=== PATIENT | male | born 1940 | race Caucasian/White ===

== ENCOUNTER 2017-02-12 08:46 | Emergency (ER) | payer OTHER ==
[~2017-02-12] VITALS: Ht 175.3 cm; Wt 90.4 kg
[2017-02-12 08:56] VITALS: TEMP 36.4; Ht 175.3 cm; Wt 90.4 kg
[2017-02-12] MEDS ORDERED: BNC/40 PO (09:30)
[2017-02-12] MEDS ORDERED: CLOP1TAB15 PO (09:30)
[2017-02-12] MEDS ORDERED: OLME1TAB11 PO (09:30)
[2017-02-12] MEDS ORDERED: PRAV80TA PO (09:30)
[2017-02-12] MEDS ORDERED: AMLO-114 PO (09:30)
[2017-02-12] MEDS ORDERED: HYDR25TA4 PO (09:30)
[2017-02-12] MEDS ORDERED: PANT40TA PO (09:30)
[2017-02-12] MEDS ORDERED: CTP1 PO (09:30)
[2017-02-12] MEDS ORDERED: EZET10TA47 PO (09:30)
[2017-02-12] MEDS ORDERED: RANI150T3 PO (09:30)
[2017-02-12] MEDS ORDERED: ASPIRIN 81 MG CHEW PO STA (09:54)
[2017-02-12 10:17] LABS: BASO % 0.3 %; BASO ABS # 0.02 K/uL (0-0.2); COMPLETE YES; EOS % 1.1 %; HEMATOCRIT 41.6 % (42-52); IG% 0.2 %; LYMPH % 20.9 %; LYMPH ABS # 1.35 K/uL (1.2-3.4); MEAN CELL VOLUME 92.4 fL (80-100); MEAN CORPUSCULAR HEMOGLOBIN 31.6 pg (25-34); MEAN CORPUSCULAR HGB CONC 34.1 g/dl (32-36); MONO % 8.5 %; PLATELET COUNT 192 K/uL (130-400); WHITE BLOOD COUNT 6.45 K/uL (4.8-10.8)
[2017-02-12 10:24] LABS: ALT/SGPT 40 U/L (12-78); BLOOD UREA NITROGEN 21 mg/dl (7-18); BUN/CREATININE RATIO 19.8 (10-20); CALCIUM 9.1 mg/dl (8.5-10.1); CARBON DIOXIDE 27 mmol/L (21-32); CHLORIDE 101 mmol/L (98-107); CREATININE 1.07 mg/dl (0.60-1.40); GLUCOSE 105 mg/dl (70-99); POTASSIUM 4.1 mmol/L (3.5-5.1); SODIUM 136 mmol/L (136-145)
[2017-02-12 10:30] LABS: ALKALINE PHOSPHATASE 35 U/L (45-117); AST/SGOT 23 U/L (15-37); CKMB/CK RATIO 1.2 (0-3.0)
--- NOTE | 2017-02-12 10:48 | DIAGNOSTIC IMAGING REPORT ---
CHEST ONE VIEW PORTABLE HISTORY: Atypical chest pain, HTN COMPARISON: None. FINDINGS: The heart is normal in size. No pleural effusions. No pneumothorax. The right lung is clear. A few linear densities the left lung base favor subsegmental atelectasis or scarring. No focal lung consolidations to suggest pneumonia. No evidence for pulmonary edema. IMPRESSION: No acute process. Mild left basilar subsegmental atelectasis or scarring. Electronically signed by: Kuldip Lima M.D. 02/12/2017 10:46 AM Dictated Date/Time: 02/12/2017 10:45 AM
[2017-02-12 13:39] VITALS: BP 108/69; PULSE 47; O2SAT 95
--- NOTE | 2017-02-12 13:45 | EMERGENCY ROOM VISIT NOTE ---
History Report prepared by Nikolas: Daniel Barcenas Under the Supervision of: Dr. Claudia Pearce M.D. First contact with patient: 09:13 Chief Complaint: HYPERTENSION Stated Complaint: HIGH BLOOD PRESSURE, BURNING SENSATION IN CHEST History of Present Illness The patient is a 77 year old male who presents to the Emergency Room with complaints of intermittent hypertension beginning a few days ago. He states his blood pressure has been very up and down recently. He states that his blood pressure medications have been improving his blood pressure, but only temporarily. The patient states that his blood pressure was elevated last night at 160/95. He is on Amlodipine, Benicar, and Clonidine. He took Clonidine for the first time last night. The patient notes that his blood pressure is typically elevated at night time. He also complains of chest "burning", and heart palpitations. The patient's chest pain occurred 1.5 hours ago and resolved with nitroglycerin. He had no chest pain last night. He has a history of IA and has a cardiac stent in place. The patient denies eating anything abnormal recently. Source of History: patient Onset: A few days ago Symptom Intensity: 160/95 last night Quality: other (hypertension) Timing: intermittent Associated Symptoms: + chest pain ("burning") Note: The patient also complains of heart palpitations. Review of Systems See HPI for pertinent positives & negatives. A total of 10 systems reviewed and were otherwise negative. Past Medical & Surgical Medical Problems: (1) HLD (hyperlipidemia) (2) HTN (hypertension) (3) Myocardial infarction Surgical Problems: (1) H/O heart artery stent Family History No pertinent family history stated. Social History Smoking Status: Never Smoker Marital Status: Housing Status: lives with family Occupation Status: retired Current/Historical Medications Scheduled Amlodipine (Norvasc), 10 MG PO HS Clonidine HCl (Clonidine HCl), 0.1 MG PO HS Clopidogrel (Plavix), 75 MG PO HS Ezetimibe (Zetia), 10 MG PO DAILY Hydrochlorothiazide (Hctz), 25 MG PO QAM Olmesartan Medoxomil (Benicar), 20 MG PO HS Olmesartan Medoxomil (Benicar), 40 MG PO QAM Pantoprazole (Protonix), 20 MG PO DAILY Pravastatin Sodium (Pravachol), 80 MG PO DAILY Ranitidine Hcl (Zantac), 75 MG PO DAILY Allergies Coded Allergies: Acetaminophen (Unverified Allergy, Unknown, ., 02/12/17) Oxycodone (Unverified Allergy, Unknown, ., 02/12/17) Physical Exam Vital Signs Date Time Temp Pulse Resp B/P (MAP) Pulse Ox O2 Delivery O2 Flow Rate FiO2 02/12/17 13:39 47 20 108/69 95 Room Air 02/12/17 13:11 49 02/12/17 11:59 45 93/61 97 Room Air 02/12/17 10:50 42 20 92/54 93 02/12/17 09:12 46 02/12/17 09:06 45 110/64 98 02/12/17 08:56 36.4 49 18 100/64 98 Room Air Physical Exam Vital signs reviewed. Noted to be normotensive. General: Well-appearing male, in no significant distress. HEENT: No scleral icterus, PERRLA, neck supple. Atraumatic. Cardiovascular: Regular rate and rhythm, no extra sounds. Distant heart tones. Pulmonary: Clear to auscultation bilaterally, normal work of breathing. Abdomen: Soft, nontender, nondistended, positive bowel sounds. Musculoskeletal: Atraumatic. Minimal lower extremity edema bilaterally. Neurologic: Patient awake alert and oriented x 3, full strength in all 4 extremities. Cranial nerves 2 through 12 grossly intact. Skin: Warm, dry, no rash Medical Decision & Procedures ER Provider Diagnostic Interpretation: X-ray results as stated below per interpretation by me and the radiologist: CHEST ONE VIEW PORTABLE FINDINGS: The heart is normal in size. No pleural effusions. No pneumothorax. The right lung is clear. A few linear densities the left lung base favor subsegmental atelectasis or scarring. No focal lung consolidations to suggest pneumonia. No evidence for pulmonary edema. IMPRESSION: No acute process. Mild left basilar subsegmental atelectasis or scarring. Electronically signed by: Kuldip Lima M.D. 02/12/2017 10:46 AM Laboratory Results 02/12/17 09:10 Red Blood Count 4.50, Mean Corpuscular Volume 92.4, Mean Corpuscular Hemoglobin 31.6, Mean Corpuscular Hemoglobin Concent 34.1, Mean Platelet Volume 10.0, Neutrophils (%) (Auto) 69.0, Lymphocytes (%) (Auto) 20.9, Monocytes (%) (Auto) 8.5, Eosinophils (%) (Auto) 1.1, Basophils (%) (Auto) 0.3, Neutrophils # (Auto) 4.45, Lymphocytes # (Auto) 1.35, Monocytes # (Auto) 0.55, Eosinophils # (Auto) 0.07, Basophils # (Auto) 0.02 02/12/17 09:10 Test 02/12/17 09:10 02/12/17 11:03 White Blood Count 6.45 K/uL (4.8-10.8) Red Blood Count 4.50 M/uL (4.7-6.1) Hemoglobin 14.2 g/dL (14.0-18.0) Hematocrit 41.6 % (42-52) Mean Corpuscular Volume 92.4 fL (80-100) Mean Corpuscular Hemoglobin 31.6 pg (25-34) Mean Corpuscular Hemoglobin Concent 34.1 g/dl (32-36) Platelet Count 192 K/uL (130-400) Mean Platelet Volume 10.0 fL (7.4-10.4) Neutrophils (%) (Auto) 69.0 % Lymphocytes (%) (Auto) 20.9 % Monocytes (%) (Auto) 8.5 % Eosinophils (%) (Auto) 1.1 % Basophils (%) (Auto) 0.3 % Neutrophils # (Auto) 4.45 K/uL (1.4-6.5) Lymphocytes # (Auto) 1.35 K/uL (1.2-3.4) Monocytes # (Auto) 0.55 K/uL (0.11-0.59) Eosinophils # (Auto) 0.07 K/uL (0-0.5) Basophils # (Auto) 0.02 K/uL (0-0.2) RDW Standard Deviation 45.9 fL (36.4-46.3) RDW Coefficient of Variation 13.5 % (11.5-14.5) Immature Granulocyte % (Auto) 0.2 % Immature Granulocyte # (Auto) 0.01 K/uL (0.00-0.02) Anion Gap 8.0 mmol/L (3-11) Est Creatinine Clear Calc Drug Dose 63.3 ml/min Estimated GFR () 76.7 Estimated GFR (Non- 66.1 BUN/Creatinine Ratio 19.8 (10-20) Calcium Level 9.1 mg/dl (8.5-10.1) Magnesium Level 2.0 mg/dl (1.8-2.4) Total Bilirubin 0.6 mg/dl (0.2-1) Direct Bilirubin 0.2 mg/dl (0-0.2) Aspartate Amino Transf (AST/SGOT) 23 U/L (15-37) Alanine Aminotransferase (ALT/SGPT) 40 U/L (12-78) Alkaline Phosphatase 35 U/L (45-117) Total Creatine Kinase 206 U/L (39-308) Creatine Kinase MB 2.5 ng/ml (0.5-3.6) Creatine Kinase MB Ratio 1.2 (0-3.0) Total Protein 7.2 gm/dl (6.4-8.2) Albumin 3.8 gm/dl (3.4-5.0) Troponin I < 0.015 ng/ml (0-0.045) Laboratory results per my review. 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 ) ED Course 0921: Past medical records reviewed. The patient was evaluated in room B9. A complete history and physical examination was performed. 0954: Ordered Aspirin Chew 324 mg PO. 1340: Upon reevaluation, the patient appeared to have improvement of his symptoms. I discussed findings with him. He verbalized agreement of the treatment plan. The patient was discharged home. Medical Decision Differential diagnosis: Acute coronary syndrome, pulmonary embolus, aortic dissection, musculoskeletal pain, pneumonia, pleural effusion, pneumothorax This patient was evaluated and appeared to be in no distress. Physical examination is fairly unrevealing. The patient has a normal blood pressure currently. He does follow with cardiology and is on higher doses of Benicar as well as hydrochlorothiazide and when necessary clonidine. The patient was traveling yesterday and had a cob salad for lunch and again at dinnertime. His laboratory work is fairly unrevealing. I suspect the patient had more sodium then he is aware of with these meals. Laboratory work including 2 sets of cardiac enzymes are negative. EKG reveals no evidence of acute ischemia. The patient has felt well with no recurrence of chest discomfort. He had a stress test one year ago that is reportedly "fine." The patient will be discharged to the care of her son. He will follow-up with his nurse healthcare manager early this week for blood pressure recheck and medication review. He was instructed to separate his Benicar dosing by 12 hours into use his clonidine only at the systolic pressure is greater than 150/160. Patient will return to the emergency department for worsening of symptoms or any medical concerns. Medication Reconcilliation Current Medication List: was personally reviewed by me Blood Pressure Screening Patient's blood pressure: Normal blood pressure Blood pressure disposition: Did not require urgent referral Impression Primary Impression: Episode of hypertension Additional Impression: Chest pain Scribe Attestation The scribe's documentation has been prepared under my direction and personally reviewed by me in its entirety. I confirm that the note above accurately reflects all work, treatment, procedures, and medical decision making performed by me. Departure Information Dispostion Home / Self-Care Referrals No Doctor, Assigned (PCP) Forms HOME CARE DOCUMENTATION FORM, IMPORTANT VISIT INFORMATION, WORK / SCHOOL INSTRUCTIONS Patient Instructions My [facility] Additional Instructions Diagnosis: Chest pain, episode of hypertension Please continue your medications as prescribed. Please space Benicar out by 12 hours between doses. Use the clonidine as prescribed 0.1 mg as needed for elevated blood pressure, use 160 systolic (top number) as your cut off. Please follow-up with your nurse healthcare manager this week for reevaluation of your medications and blood pressure. Minimize any salt in your diet. Return to the emergency department for worsening of symptoms or any medical concerns. Problem Qualifiers
== END 2017-02-12 13:49 | disposition home or self-care (01) ==
LOC: C.EDB 08:48
DX: I10 Essential (primary) hypertension (principal); R07.9 Chest pain, unspecified; I44.0 Atrioventricular block, first degree; E78.5 Hyperlipidemia, unspecified; I25.2 Old myocardial infarction; Z98.61 Coronary angioplasty status; Z79.899 Other long term (current) drug therapy; Z88.5 Allergy status to narcotic agent; Z88.6 Allergy status to analgesic agent